=== PATIENT | female | born 1945 | race Caucasian/White ===

== ENCOUNTER 2025-02-06 18:41 | Inpatient (IN) | payer MEDICARE, OTHER ==
[~2025-02-06] VITALS: Ht 165.1 cm; Wt 57.6 kg
[2025-02-06] MEDS ORDERED: AMLO10TA59 PO (18:53)
[2025-02-06] MEDS ORDERED: LEVO112T2 PO (18:53)
[2025-02-06] MEDS ORDERED: VALS320T2 PO (18:53)
[2025-02-06] MEDS ORDERED: METO50TA16 PO (18:53)
[2025-02-06] MEDS ORDERED: HYDR25TA4 PO (18:53)
[2025-02-06 18:58] LABS: PLATELET COUNT (AUTO) 386 K/uL (179-408); RED BLOOD CELL COUNT(AUTO) 4.10 MIL/uL (3.63-4.92); RED CELL DISTRIBUTION WIDTH 12.8 % (12.3-17.7); WHITE BLOOD COUNT (AUTO) 6.6 K/uL (3.8-11.8)
[2025-02-06 19:04] LABS: CREATININE 0.9 mg/dL (0.6-1.3); SODIUM SERUM 138 mmol/L (136-145); UREA NITROGEN, BLOOD 22 mg/dL (7-18)
[2025-02-06 19:09] LABS: ASPARTATE AMINOTRANSFERASE 30 U/L (15-37); TOTAL PROTEIN, SERUM 7.4 g/dL (6.4-8.2)
[2025-02-06 19:13] LABS: ETHANOL < 3 MG/DL (0-10)
[2025-02-06 20:02] LABS: *BILIRUBIN,URIN NEGATIVE (NEGATIVE); *BLOOD, URINE TRACE (NEGATIVE); *CLARITY,URINE HAZY (CLEAR); *COLOR,URINE LIGHT YELLOW (YELLOW); *KETONES,URINE NEGATIVE (NEGATIVE); *PROTEIN,URINE NEGATIVE (NEGATIVE); *UROBILINOGEN,URINE 0.2 E.U./dl (NORMAL); LEUKOCYTE ESTERASE ,URINE 3+ (NEGATIVE); NITRITE, URINE NEGATIVE (NEGATIVE); UGLUCOSE NEGATIVE (NEGATIVE)
[2025-02-06 20:14] LABS: SQUAMOUS EPITHELIAL CELL,UR FEW /HPF (NONE SEEN)
[2025-02-06 20:16] LABS: *AMPHETAMINE, URINE NEGATIVE (NEGATIVE); *BARBITURATE, URINE NEGATIVE (NEGATIVE); *BENZODIAZEPINE, URINE NEGATIVE (NEGATIVE); *CANNABINOID, URINE NEGATIVE (NEGATIVE); *COCCAINE, URINE NEGATIVE (NEGATIVE); *OPIATE, URINE NEGATIVE (NEGATIVE); *PHENCYCLIDINE SCREEN,URINE NEGATIVE (NEGATIVE); FENTANYL, URINE NEGATIVE (NEGATIVE)
[2025-02-06 20:45] VITALS: BP 124/69
[2025-02-06] MEDS: NITROFURANTOIN/NITROFURAN MAC 100 MG CAPSULE PO SCH (21:00)
[2025-02-06] MEDS ORDERED: MAGNESIUM HYDROXIDE 30 ML LIQUID UDC PO PRN (22:15)
[2025-02-06] MEDS ORDERED: LORAZEPAM 0.5 MG TABLET PO PRN (22:15)
[2025-02-06] MEDS ORDERED: LORAZEPAM 1 MG TABLET PO PRN (22:15)
[2025-02-06] MEDS ORDERED: MAG HYDROX/AL HYDROX/SIMETH 30 ML LIQUID UDC PO PRN (22:15)
[2025-02-06] MEDS ORDERED: ZOLPIDEM 5 MG TABLET PO PRN (22:15)
[2025-02-06] MEDS ORDERED: NITROFURANTOIN/NITROFURAN MAC 100 MG CAPSULE PO ONE (22:17)
[2025-02-06 22:35] VITALS: BP 155/76; TEMP 98.2; O2SAT 99
[2025-02-06] MEDS: BLOOD SUGAR DIAGNOSTIC 1 EACH STRIP VI ONE (23:04)
[2025-02-06] MEDS: ZOLPIDEM 5 MG TABLET PO PRN (23:05)
[2025-02-07] MEDS: ACETAMINOPHEN 325 MG TABLET PO PRN (06:30)
[2025-02-07] MEDS: LEVOTHYROXINE SODIUM 112 MCG TABLET PO SCH (07:03)
[2025-02-07 07:40] LABS: GLUCOSE FASTING 90.0 mg/dL (70-115)
[2025-02-07] MEDS: VALSARTAN 160 MG TABLET PO SCH (09:06)
[2025-02-07] MEDS: AMLODIPINE 10 MG TABLET PO SCH (09:07)
[2025-02-07] MEDS: METOPROLOL TARTRATE 50 MG TABLET PO SCH (09:07)
[2025-02-07] MEDS ORDERED: LORAZEPAM 0.5 MG TABLET PO PRN (10:15)
[2025-02-07 10:22] VITALS: BP 137/80; TEMP 97.6; O2SAT 98
[2025-02-07] MEDS ORDERED: TRIA1TAB3 PO (10:53)
[2025-02-07] MEDS: ESCITALOPRAM OXALATE 10 MG TABLET PO SCH (11:21)
[2025-02-07 15:29] VITALS: BP 152/85; TEMP 98.6; O2SAT 100
[2025-02-08] MEDS ORDERED: ENSURE ENLIVE (VAN) 240 ML LIQUID PO SCH (09:00)
[2025-02-08] MEDS ORDERED: DOCUSATE SODIUM 100 MG CAPSULE PO SCH (09:00)
== END 2025-02-07 17:53 | disposition left against medical advice (07) | DRG 880 ==
LOC: ER 18:41 → GPS 22:07
PROVIDERS: ADMIT Psychiatry & Neurology Psychiatry
DX: F41.9 Anxiety disorder, unspecified (principal); B96.89 Other specified bacterial agents as the cause of diseases classified elsewhere; N39.0 Urinary tract infection, site not specified; F33.9 Major depressive disorder, recurrent, unspecified; E03.9 Hypothyroidism, unspecified; I10 Essential (primary) hypertension; Z53.29 Procedure and treatment not carried out because of patient's decision for other reasons; R79.89 Other specified abnormal findings of blood chemistry; Z88.0 Allergy status to penicillin
CPT/HCPCS: 36415; 84443; 84481; 85025; 87086; G0480